=== PATIENT | male | born 1995 | race Caucasian/White ===

== ENCOUNTER 2021-08-02 09:45 | Emergency (ER) | payer MEDICAID ==
[~2021-08-02] VITALS: Ht 182.9 cm; Wt 115.0 kg
[2021-08-02] MEDS ORDERED: SODIUM CHLORIDE 0.9% 1,000 ML IV ONE (10:00)
[2021-08-02 10:22] LABS: HEMATOCRIT. 39.4 % (42.0-52.0); MEAN CORPUSCULAR HEMOGLOBIN 30.7 pg (28.0-32.0); MEAN CORPUSCULAR VOLUME 86.3 fL (80.0-94.0); MEAN PLATELET VOLUME 7.9 fl (7.4-10.4); PLATELET 234 x1000/uL (130-400); RED BLOOD CELL COUNT 4.56 mill/uL (4.7-6.1); RED CELL DISTRIBUTION WIDTH 13.2 % (11.6-14.6)
[2021-08-02 10:30] LABS: CHLORIDE 108 mEq/L (98-107)
[2021-08-02 10:34] LABS: PARTIAL THROMBOPLASTIN TIME 25.1 sec (23.4-31.0); PROTHROMBIN TIME 10.3 sec (9.6-11.0)
[2021-08-02 10:35] LABS: ETHANOL BLOOD < 10 mg/dL
[2021-08-02 10:55] LABS: PLATELET ESTIMATE NORMAL
[2021-08-02] MEDS ORDERED: MORPHINE SULFATE 2 MG/ML CPJ (NOT FOR IM USE) IV ONE ×2 (14:00→15:30)
[2021-08-02] MEDS ORDERED: ONDANSETRON HCL 4MG/2ML INJ IV ONE (14:00)
[2021-08-02 15:30] VITALS: BP 133/82
[2021-08-02 16:28] LABS: *AMPHETAMINES SCREEN URINE PRESUMTIVE POSITIVE (NEGATIVE); *BARBITURATES SCREEN URINE NEGATIVE (NEGATIVE); *BENZODIAZEPINES SCREEN URINE NEGATIVE (NEGATIVE); *COCAINE SCREEN URINE NEGATIVE (NEGATIVE)
[2021-08-02 16:29] LABS: CANNABINOID URINE SCREEN NEGATIVE (NEGATIVE); METHADONE URINE SCREEN NEGATIVE (NEGATIVE); OPIATES URINE SCREEN NEGATIVE (NEGATIVE); PHENCYCLIDINE URINE SCREEN NEGATIVE (NEGATIVE)
== END 2021-08-02 16:06 | disposition short-term general hospital (02) ==
LOC: ER 09:54
DX: S72.8X1A Other fracture of right femur, initial encounter for closed fracture (principal); S82.144A Nondisplaced bicondylar fracture of right tibia, initial encounter for closed fracture; R41.82 Altered mental status, unspecified; F15.10 Other stimulant abuse, uncomplicated; Z20.822 Contact with and (suspected) exposure to COVID-19; V18.0XXA Pedal cycle driver injured in noncollision transport accident in nontraffic accident, initial encounter; Y93.55 Activity, bike riding; Y92.488 Other paved roadways as the place of occurrence of the external cause
CPT/HCPCS: 29505; 36415; 70450; 71045; 72125; 73501; 73551; 73560; 73590; 76705; 80053; 80305; 80320; 85025; 85610; 85730; 87426; 96361; 96374; 96375; 99291; J2270; J2405; J7030; G0480